=== PATIENT | male | born 1960 | race Asian ===

== ENCOUNTER 2016-11-14 22:22 | Inpatient (IN) | payer OTHER ==
[~2016-11-14] VITALS: Ht 177.8 cm; Wt 75.3 kg
--- NOTE | 2016-11-14 22:30 | NUR ---
Patient exited the restroom with his pants at his ankles. Patient was disoriented and attempting to enter other patient's rooms stating "I need to lay down." Patient was not directable, for his safety staff took patient by the arm and led him to his bed. Due to patient's gait and disorientation staff was unable to pull his pants up before patient layed in bed.
[2016-11-14] MEDS ORDERED: TDAP DIPH,PERTUSS,TET VAC/PF 0.5 ML DISP.SYRIN IM ONE (22:45)
[2016-11-14] MEDS ORDERED: LORAZEPAM 2 MG/1 ML VIAL IV ONE (22:45)
[2016-11-14] MEDS ORDERED: ONDANSETRON IV *ER 4 MG/2 ML VIAL IV ONE (22:45)
[2016-11-14] MEDS ORDERED: IV NORMAL SALINE 1000 ML BAG IV ONE (22:45)
[2016-11-14] MEDS ORDERED: PIPERACILLIN SODIUM/TAZOBACTAM 3.375 G in IV DEXTROSE 5% 50 ML IV ONE (22:45)
[2016-11-14] MEDS ORDERED: diphenhydrAMINE 50 MG/1 ML VIAL IV ONE (22:45)
[2016-11-14] MEDS ORDERED: ACETAMINOPHEN ES 500 MG TABLET PO ONE (22:45)
[2016-11-14] MEDS ORDERED: VANCOMYCIN IV 1,000 MG in IV DEXTROSE 5% 250 ML IV ONE (22:45)
[2016-11-14] MEDS ORDERED: LORAZEPAM 2 MG/1 ML VIAL ONE (22:55)
[2016-11-14] MEDS ORDERED: diphenhydrAMINE 50 MG/1 ML VIAL ONE (22:55)
[2016-11-14] MEDS ORDERED: diphenhydrAMINE 50 MG/1 ML VIAL IM ONE (23:15)
[2016-11-14] MEDS ORDERED: LORAZEPAM 2 MG/1 ML VIAL IM ONE (23:15)
[2016-11-14 23:31] LABS: EOSINOPHILS # (AUTO) 0.2 K/uL (0.0-0.7); WHITE BLOOD COUNT (AUTO) 7.2 K/UL (4.0-11.2)
[2016-11-14 23:33] LABS: BASOPHILS % (AUTO) 0.5 % (0.0-2.0); EOSINOPHILS % (AUTO) 2.3 % (0.0-7.0); HEMATOCRIT 42.4 % (40-50); HEMOGLOBIN 13.7 G/DL (14.0-18.0); LYMPHOCYTES # (AUTO) 0.7 K/UL (0.8-4.8); LYMPHOCYTES % (AUTO) 9.9 % (20.5-51.5); MEAN CORPUSCULAR HEMOGLOBIN 29.1 UUG (27.0-31.0); MEAN CORPUSCULAR HGB CONC 32 g/dL (32.0-37.0); MEAN CORPUSCULAR VOLUME 90.2 FL (82.0-92.0); MONOCYTES # (AUTO) 0.2 K/UL (0.1-1.30); MONOCYTES % (AUTO) 2.9 % (0.0-11.0); NEUTROPHILS # (AUTO) 6.1 K/UL (1.8-8.9); NEUTROPHILS % (AUTO) 84.4 % (38.5-71.5); PLATELET COUNT (AUTO) 187 K/UL (150-450)
[2016-11-14 23:35] LABS: CARBON DIOXIDE 25 mmol/L (21-32); CHLORIDE 99 mmol/L (98-107); CREATININE 0.7 mg/dL (0.6-1.3); GLUCOSE 112 mg/dL (74-106); POTASSIUM 3.7 mmol/L (3.5-5.1); UREA NITROGEN, BLOOD 19 mg/dL (7-18)
[2016-11-14 23:38] LABS: BAND % (MANUAL) 3 % (0-10); EOSINOPHILS % (MANUAL) 2 % (0-8); LYMPHOCYTES % (MANUAL) 15 % (20-40); MONOCYTES % (MANUAL) 5 % (2-10); NEUTROPHILS % (MANUAL) 75 % (42-75)
[2016-11-14 23:41] LABS: ALANINE AMINOTRANSFERASE 214 U/L (16-63); ALKALINE PHOSPHATASE 171 U/L (50-136); ASPARTATE AMINOTRANSFERASE 264 U/L (15-37); BILIRUBIN,DIRECT 0.2 mg/dL (0.0-0.2); BILIRUBIN,TOTAL 0.8 mg/dL (0.2-1.0); TOTAL PROTEIN, SERUM 7.5 g/dL (6.4-8.2)
[2016-11-15] MEDS ORDERED: ACETAMINOPHEN 650 MG SUPP.RECT RC ONE ×2 (00:15→00:26)
[2016-11-15] MEDS ORDERED: TDAP DIPH,PERTUSS,TET VAC/PF 0.5 ML DISP.SYRIN IM ONE (00:20)
[2016-11-15] MEDS ORDERED: ACETAMINOPHEN ES 500 MG TABLET ONE (00:20)
[2016-11-15] MEDS ORDERED: ONDANSETRON 4 MG/2 ML VIAL ONE (00:20)
[2016-11-15] MEDS ORDERED: PIPERACILLIN/TAZOBACTAM/D5W 50 ML IV ONE (00:20)
[2016-11-15] MEDS ORDERED: VANCOMYCIN IV 200 ML ONE (01:11)
--- NOTE | 2016-11-15 01:50 | NUR ---
Patient attempting to exit the bed, agitated and trying to push past staff. At this time staff observed that he had removed all IV and monitor lines before exiting the bed. RADHA notified.
[2016-11-15] MEDS ORDERED: LABETALOL HCL 100 MG/20 ML VIAL IV ONE (02:00)
[2016-11-15] MEDS ORDERED: LABETALOL 20 MG/4 ML VIAL IV ONE (02:11)
--- NOTE | 2016-11-15 02:50 | NUR ---
Patient attempting to exit the bed, pulled out IV, ERMD notified.
[2016-11-15] MEDS ORDERED: MAGNESIUM HYDROXIDE 30 ML LIQUID UDC PO PRN (03:00)
[2016-11-15] MEDS ORDERED: LORAZEPAM 2 MG/1 ML VIAL IV ONE (03:00)
[2016-11-15] MEDS ORDERED: ONDANSETRON 4 MG/2 ML VIAL IV PRN (03:00)
[2016-11-15] MEDS ORDERED: Z GUARD REMEDY PASTE 57 GM TUBE TOP PRN (03:00)
[2016-11-15] MEDS ORDERED: LORAZEPAM 2 MG/1 ML VIAL ONE (03:12)
--- NOTE | 2016-11-15 03:25 | NUR ---
RECEIVED PT FROM ER VIA [facility], ACCOMPANIED BY MOTHER. PT IS ASLEEP, IN NO ACUTE DISTRESS, NO SOB. DX: ALTERED MENTAL STATUS UNDER THE CARE OF DR. BUTT. ADMISSION PROCESS STARTED, BELONGING LIST DONE, CARE PLAN INITIATED. BED ALARM ON, 1:1 SITTER FOR SAFETY. WILL CONTINUE TO MONITOR.
[2016-11-15 03:45] VITALS: BP 151/108
--- NOTE | 2016-11-15 04:07 | NUR ---
Pt. admitted to TELE, under care of Dr. Bonilla Belongs List completed
--- NOTE | 2016-11-15 06:00 | NUR ---
PT SLEEPING, AROUSABLE, IN NO ACUTE DISTRESS. 1:1 SITTER FOR SAFETY. WILL CONTINUE TO MONITOR.
--- NOTE | 2016-11-15 07:30 | NUR ---
PATIENT RECEIVED IN ROOM RESTING WITH EYES CLOSED IN NO ACUTE DISTRESS. SR ON FACULTY RESEARCH PHYSICIAN. PATIENT WITH 1:1 SITTER AT BEDSIDE FOR SAFETY.
--- NOTE | 2016-11-15 08:29 | NUR ---
SBAR REPORT GIVEN TO RN TAKING OVER PATIENT'S CARE.
[2016-11-15] MEDS ORDERED: IV NS 1000 ML 1,000 ML IV PRN (09:45)
[2016-11-15] MEDS ORDERED: PIPERACILLIN/TAZOBACTAM/D5W 50 ML IV SCH (09:45)
[2016-11-15] MEDS ORDERED: CLONIDINE HCL 0.1 MG TABLET PO PRN (10:00)
[2016-11-15] MEDS ORDERED: AMLODIPINE 5 MG TABLET PO SCH ×2 (10:00→22:40)
[2016-11-15 10:20] LABS: BASOPHILS # (AUTO) 0.1 K/uL (0.0-8.0); BASOPHILS % (AUTO) 0.8 % (0.0-2.0); EOSINOPHILS % (AUTO) 0.3 % (0.0-7.0); HEMATOCRIT 45.8 % (40-50); HEMOGLOBIN 15.2 G/DL (14.0-18.0); LYMPHOCYTES # (AUTO) 1.5 K/UL (0.8-4.8); LYMPHOCYTES % (AUTO) 18.2 % (20.5-51.5); MEAN CORPUSCULAR HEMOGLOBIN 29.7 UUG (27.0-31.0); MEAN CORPUSCULAR HGB CONC 33 g/dL (32.0-37.0); MEAN CORPUSCULAR VOLUME 89.9 FL (82.0-92.0); MONOCYTES # (AUTO) 0.6 K/UL (0.1-1.30); NEUTROPHILS # (AUTO) 6.1 K/UL (1.8-8.9); NEUTROPHILS % (AUTO) 73.7 % (38.5-71.5); PLATELET COUNT (AUTO) 199 K/UL (150-450); WHITE BLOOD COUNT (AUTO) 8.3 K/UL (4.0-11.2)
[2016-11-15 10:26] LABS: *BILIRUBIN,URIN NEGATIVE (NEGATIVE); *BLOOD, URINE Trace-intact (NEGATIVE); *CLARITY,URINE CLEAR (CLEAR); *COLOR,URINE YELLOW (YELLOW); *KETONES,URINE NEGATIVE (NEGATIVE); *PROTEIN,URINE NEGATIVE (NEGATIVE); LEUKOCYTE ESTERASE ,URINE NEGATIVE (NEGATIVE); NITRITE, URINE NEGATIVE (NEGATIVE); UGLUCOSE TRACE (NEGATIVE)
[2016-11-15 10:36] LABS: BACTERIA,URINE NONE SEEN /HPF (NONE SEEN); RBC,URINE 0-3 /HPF (0-3); SQUAMOUS EPITHELIAL CELL,UR FEW /HPF (NONE SEEN); WBC,URINE NONE SEEN /HPF (0-3)
[2016-11-15 10:48] LABS: BILIRUBIN,TOTAL 0.5 mg/dL (0.2-1.0); CREATININE 0.8 mg/dL (0.6-1.3); MAGNESIUM 1.9 mg/dL (1.8-2.4); PHOSPHOROUS 2.8 mg/dL (2.5-4.9); POTASSIUM 3.6 mmol/L (3.5-5.1); TOTAL PROTEIN, SERUM 7.8 g/dL (6.4-8.2)
--- NOTE | 2016-11-15 11:00 | NUR ---
PT STARTED ON ZOSYN AND VANCOMYCIN, MONITORED FOR ALLERGIC REACTION. CONTINUE 1:1 SITTER FOR SAFETY.
[2016-11-15 11:28] LABS: THYROID STIMULATING HORMONE 0.161 mIU/mL (0.358-3.740)
[2016-11-15] MEDS: LORAZEPAM 2 MG/1 ML VIAL IV PRN ×3 (11:36→21:42)
[2016-11-15] MEDS: VANCOMYCIN IV 1,250 MG in IV DEXTROSE 5% 500 ML IV SCH ×2 (11:55→19:57)
--- NOTE | 2016-11-15 12:00 | NUR ---
SEEN BY DR. BARNARD FOR CONSULT FOR PAIN MGMT WITH ORDERS. SEE NOTES.
[2016-11-15] MEDS ORDERED: METHADONE HCL 10 MG TABLET PO SCH (13:30)
[2016-11-15] MEDS ORDERED: CLONIDINE TTS 2 PATCH TD SCH (13:30)
--- NOTE | 2016-11-15 14:00 | NUR ---
SEEN BY DR. HOGAN. CHANGED PT STATUS TO MED SURG.
[2016-11-15] MEDS: hydrALAZINE HCL 50 MG TABLET PO PRN ×2 (15:40→19:57)
[2016-11-15 15:48] VITALS: BP 178/68
--- NOTE | 2016-11-15 15:57 | NUR ---
Clinical Pharmacy Note: Vancomycin Pharmacy to Dose Subjective: To start vancomycin in this 56 y/o gentleman for indication of "empiric therapy" (temp 102.7) Objective: height 177 cm weight 75kg BUN 19 Scr 0.7 Wbc 7.2 Temp 102.7 1gm vanco given in ER 11/15 @ 0100 Assessment/Plan As renal function ok, will start regimen of 1250mg q9hr for expected vanco trough of 15.72. First dose given today at 1030. Will order trough before 4th scheduled dose (ordered and due tomorrow 11/16 @ 1300). will check trough and adjust as appropriately. Will continue to follow.
--- NOTE | 2016-11-15 16:34 | NUR ---
PT IN AND OUT OF EPISODES OF SCREAMING AND RESTLESSNESS DESPITE ATIVAN PRN GIVEN. CONTINUE 1:1 SITTER FOR SAFETY, NEW MEDICATIONS ORDERED AND WILL MONITOR B/P.
[2016-11-15 17:05] LABS: *AMPHETAMINE, URINE NEGATIVE (NEGATIVE); *BARBITURATE, URINE NEGATIVE (NEGATIVE); *CANNABINOID, URINE NEGATIVE (NEGATIVE); *COCCAINE, URINE NEGATIVE (NEGATIVE); *OPIATE, URINE POSITIVE (NEGATIVE); *PHENCYCLIDINE SCREEN,URINE NEGATIVE (NEGATIVE)
[2016-11-15] MEDS: METHADONE HCL 10 MG TABLET PO SCH (17:26)
[2016-11-15] MEDS: PIPERACILLIN/TAZOBACTAM/D5W 50 ML IV SCH ×2 (18:22→23:26)
--- NOTE | 2016-11-15 18:57 | NUR ---
MIDLINE INSERTION DONE ON LEFT UPPER ARM.
--- NOTE | 2016-11-15 19:30 | NUR ---
RESTING IN BED ASLEEP, BUT AROUSABLE. CALM AT THIS TIME. NO ACUTE DISTRESS NOTED. SAFETY INITIATED WITH 1:1 SITTER AT BEDSIDE. WILL CONTINUE TO MONITOR
[2016-11-15 20:00] VITALS: BP 176/119
[2016-11-15 22:44] VITALS: BP 192/121
--- NOTE | 2016-11-15 22:44 | NUR ---
BP STILL ELEVATED AT 192/121 AND HR AT 65. PATIENT CALM AND COMFORTABLE. DR. PRADO MADE AWARE WITH ORDERS. WILL CONTINUE TO MONITOR
[2016-11-15] MEDS ORDERED: AMLODIPINE 5 MG TABLET ONE (22:48)
[2016-11-15] MEDS: ACETAMINOPHEN 325 MG TABLET PO PRN (23:44)
--- NOTE | 2016-11-15 23:45 | NUR ---
STARTED TO BE SCREAMING AT THE TOP OF HIS LUNGS "I WANT MY OPIATES, I WANT TO GO HOME." "I AM NOT FEELING GOOD, I NEED MY OPIATES" SITTER AT BEDSIDE. WANTED TO GET OUT OF BED. PROVIDED SAFETY. STATED TO BE NAUSEOUS. WILL ADMINISTER ZOFRAN ORDERED
[2016-11-16] MEDS: LORAZEPAM 2 MG/1 ML VIAL IV PRN ×2 (01:43→06:34)
[2016-11-16] MEDS: VANCOMYCIN IV 1,250 MG in IV DEXTROSE 5% 500 ML IV SCH (04:03)
[2016-11-16] MEDS: hydrALAZINE HCL 50 MG TABLET PO PRN (04:48)
[2016-11-16 04:49] VITALS: BP 178/134
--- NOTE | 2016-11-16 05:59 | NUR ---
AT 0449 BP WAS 178/134. HYDRALAZINE GIVEN ORDERED. BP RECHECKED, STILL ELEVATED. 182/132. DR BUTT MADE AWARE WITH ORDERS
[2016-11-16] MEDS: LABETALOL HCL 100 MG/20 ML VIAL IV PRN ×3 (06:19→21:18)
[2016-11-16] MEDS ORDERED: LABETALOL HCL 100 MG/20 ML VIAL ONE (06:25)
[2016-11-16] MEDS: PIPERACILLIN/TAZOBACTAM/D5W 50 ML IV SCH ×3 (06:34→18:09)
[2016-11-16 08:00] VITALS: BP 183/121
--- NOTE | 2016-11-16 08:00 | NUR ---
PATIENT WITH ON AND OFF RESTLESSNESS AND AGITATION WITH 1:1 SITTER AT BEDSIDE FOR SAFETY. NO SIGNS OF DISTRESS. CONTINUE WITH LALITA MONITORING
[2016-11-16] MEDS: METHADONE HCL 10 MG TABLET PO SCH ×2 (08:09→17:37)
[2016-11-16] MEDS: AMLODIPINE 5 MG TABLET PO SCH ×2 (08:09→21:15)
[2016-11-16 08:26] LABS: BASOPHILS # (AUTO) 0.1 K/uL (0.0-8.0); BASOPHILS % (AUTO) 0.5 % (0.0-2.0); EOSINOPHILS % (AUTO) 0.4 % (0.0-7.0); HEMATOCRIT 47.9 % (40-50); HEMOGLOBIN 16.2 G/DL (14.0-18.0); LYMPHOCYTES # (AUTO) 2.2 K/UL (0.8-4.8); LYMPHOCYTES % (AUTO) 18.8 % (20.5-51.5); MEAN CORPUSCULAR HEMOGLOBIN 30.3 UUG (27.0-31.0); MEAN CORPUSCULAR HGB CONC 34 g/dL (32.0-37.0); MEAN CORPUSCULAR VOLUME 89.8 FL (82.0-92.0); MONOCYTES % (AUTO) 8.8 % (0.0-11.0); NEUTROPHILS # (AUTO) 8.3 K/UL (1.8-8.9); NEUTROPHILS % (AUTO) 71.5 % (38.5-71.5); PLATELET COUNT (AUTO) 220 K/UL (150-450); RED BLOOD CELL COUNT(AUTO) 5.33 MIL/UL (4.7-6.1); WHITE BLOOD COUNT (AUTO) 11.6 K/UL (4.0-11.2)
[2016-11-16 08:59] LABS: CREATININE 0.8 mg/dL (0.6-1.3); PHOSPHOROUS 2.9 mg/dL (2.5-4.9); POTASSIUM 3.2 mmol/L (3.5-5.1)
[2016-11-16 09:47] LABS: BAND % (MANUAL) 11 % (0-10); LYMPHOCYTES % (MANUAL) 25 % (20-40); MONOCYTES % (MANUAL) 11 % (2-10); NEUTROPHILS % (MANUAL) 53 % (42-75)
[2016-11-16] MEDS ORDERED: ENALAPRILAT DIHYDRATE INJ 1.25 MG in IV NORMAL SALINE 50 ML IV PRN (10:15)
[2016-11-16 10:26] LABS: MAGNESIUM 2.2 mg/dL (1.8-2.4)
[2016-11-16] MEDS: POTASSIUM CHLORIDE 50 ML IV SCH ×2 (11:01→12:04)
--- NOTE | 2016-11-16 11:30 | NUR ---
SEEN BY RN PBX TEACHER SEE NOTES
[2016-11-16 12:00] VITALS: BP 173/114
[2016-11-16 12:10] LABS: THYROID STIMULATING HORMONE 0.295 mIU/mL (0.358-3.740)
[2016-11-16 14:11] LABS: HEPATITIS A AB, IgM Negative (Negative); HEPATITIS A AB, TOTAL Negative (Negative); HEPATITIS B SURFACE AB Non Reactive (.); HEPATITIS B SURFACE AG Negative (Negative)
--- NOTE | 2016-11-16 14:15 | NUR ---
LABETALOL IVP GIVEN ORDERED FOR BP 174/121, SR ON MONITOR. CLOSELY MONITORED
[2016-11-16] MEDS: VANCOMYCIN IV 1,500 MG in IV DEXTROSE 5% 500 ML IV SCH ×2 (15:14→22:05)
[2016-11-16] MEDS: LORAZEPAM 1 MG TABLET PO PRN (15:14)
--- NOTE | 2016-11-16 15:31 | NUR ---
Clinical Pharmacy Note: Vancomycin Pharmacy to Dose Subjective: To continue Vancomycin in this 56 y/o gentleman for RUE cellulitis/sepsis Objective: height 177 cm weight 75kg BUN 9 Scr 0.8 Wbc 11.6 Temp 98.6 Vancomycin trough 9.6 today at 1300 Assessment/Plan Since trough is subtherapeutic, will change the dose to 1500mg IV every 8hrs(first dose given today at 1400) and draw trough around 4 th dose (ordered tomorrow at 1330) for expected trough around 14.9. Will monitor renal function closely to adjust the dose if needed. Will continue to follow.
[2016-11-16 16:00] VITALS: BP 162/119
[2016-11-16 16:26] VITALS: BP 119/58
[2016-11-16 20:00] VITALS: BP 165/99
[2016-11-16] MEDS: LACTOBACILLUS RHAMNOSUS GG 1 EACH CAPSULE PO SCH (21:13)
--- NOTE | 2016-11-16 21:30 | NUR ---
Received patient awake no SOB denies chest pain. Calmer at this time w/ 1:1 sitter in room. Able to follow command & cooperative w/ meds. BP elevated 168/99. Left upper arm midline intact & patent. PRN BP med Labetalol 2mg IVP adm & monitored. Patient is sinus rhythm on the monitor.
[2016-11-17] VITALS: BP 160/93
[2016-11-17] MEDS: PIPERACILLIN/TAZOBACTAM/D5W 50 ML IV SCH ×4 (00:07→17:40)
[2016-11-17] MEDS: ACETAMINOPHEN 325 MG TABLET PO PRN (02:43)
[2016-11-17] MEDS: LORAZEPAM 1 MG TABLET PO PRN ×3 (02:43→13:36)
--- NOTE | 2016-11-17 02:50 | NUR ---
Awake & agitated, disoriented to place begging for heroin to knock him out. Tele shows NSR w/ HR 90 bpm. Re-orientation initiated, Tylenol 650mg & Ativan 1mg po given. Safety observed, 1:1 sitter in room.
--- NOTE | 2016-11-17 04:00 | NUR ---
Patient is quiet & sleeping. 1:1 sitter in room for safety. Sinus rhythm on the monitor.
[2016-11-17 05:00] VITALS: BP 160/70
[2016-11-17 05:09] LABS: HEPATITIS Be ANTIGEN Negative (Negative)
[2016-11-17] MEDS: VANCOMYCIN IV 1,500 MG in IV DEXTROSE 5% 500 ML IV SCH (05:19)
[2016-11-17] MEDS: METHADONE HCL 10 MG TABLET PO SCH ×2 (06:19→16:42)
--- NOTE | 2016-11-17 06:25 | NUR ---
Awake again. Agitated & screaming begging for his methadone. Patient is more alert. Early dose of Methadone 20 mg po. provided. Will continue to monitor.
--- NOTE | 2016-11-17 07:37 | NUR ---
REMAINS WITH ON AND OFF RESTLESSNESS AND SCREAMING "GIVE ME MY METHADONE" REALITY ORIENTATION GIVEN AND CONTINUE WITH 1:1 SITTER FOR SAFETY
[2016-11-17] MEDS: LACTOBACILLUS RHAMNOSUS GG 1 EACH CAPSULE PO SCH ×2 (08:33→20:10)
[2016-11-17] MEDS: AMLODIPINE 5 MG TABLET PO SCH ×2 (08:35→20:10)
[2016-11-17] MEDS: CARVEDILOL 6.25 MG TABLET PO SCH ×2 (08:35→17:42)
[2016-11-17] MEDS ORDERED: IV NORMAL SALINE 250 ML IV ONE (09:29)
[2016-11-17] MEDS ORDERED: IOHEXOL 300MG/ML 100 ML INFUS..BTL ONE (09:29)
[2016-11-17 10:28] LABS: BASOPHILS % (AUTO) 0.4 % (0.0-2.0); EOSINOPHILS # (AUTO) 0.2 K/uL (0.0-0.7); EOSINOPHILS % (AUTO) 1.7 % (0.0-7.0); HEMATOCRIT 44.3 % (40-50); HEMOGLOBIN 14.5 G/DL (14.0-18.0); LYMPHOCYTES % (AUTO) 31.6 % (20.5-51.5); MEAN CORPUSCULAR HEMOGLOBIN 29.5 UUG (27.0-31.0); MEAN CORPUSCULAR HGB CONC 33 g/dL (32.0-37.0); MEAN CORPUSCULAR VOLUME 89.8 FL (82.0-92.0); MONOCYTES # (AUTO) 1.2 K/UL (0.1-1.30); MONOCYTES % (AUTO) 12.7 % (0.0-11.0); NEUTROPHILS # (AUTO) 5.1 K/UL (1.8-8.9); NEUTROPHILS % (AUTO) 53.6 % (38.5-71.5); PLATELET COUNT (AUTO) 216 K/UL (150-450); RED BLOOD CELL COUNT(AUTO) 4.93 MIL/UL (4.7-6.1); WHITE BLOOD COUNT (AUTO) 9.5 K/UL (4.0-11.2)
[2016-11-17 10:39] LABS: BILIRUBIN,TOTAL 0.4 mg/dL (0.2-1.0); CREATININE 0.8 mg/dL (0.6-1.3); MAGNESIUM 2.1 mg/dL (1.8-2.4); PHOSPHOROUS 4.2 mg/dL (2.5-4.9); POTASSIUM 3.4 mmol/L (3.5-5.1); TOTAL PROTEIN, SERUM 6.7 g/dL (6.4-8.2)
[2016-11-17 12:02] VITALS: BP 107/74
[2016-11-17] MEDS ORDERED: POTASSIUM CHLORIDE 20 MEQ TAB.PRT.SR PO ONE (13:15)
--- NOTE | 2016-11-17 13:30 | NUR ---
VERY RESTLESS AND AGITATED WANTS TO GO HOME, TRIED TO REACH FAMILY BUT NO ANSWER. PRN ATIVEN GIVEN AND OBSERVED. SITTER AT BEDSIDE
[2016-11-17] MEDS ORDERED: HALOPERIDOL LACTATE 5 MG/1 ML VIAL IM ONE (14:00)
--- NOTE | 2016-11-17 14:00 | NUR ---
STILL VERY AGITATED CROSSING FLAGMAN ON FLORR MADE AWARE OF PT AGITATION UNCONTROLLABLE, GAVE PRDERS. HALDOL GIVEN
[2016-11-17] MEDS ORDERED: diphenhydrAMINE 50 MG/1 ML VIAL IM ONE (14:15)
--- NOTE | 2016-11-17 14:20 | NUR ---
BENADRYL ALSO GIVEN WITH GOOD EFFECT ON PATIENT.
--- NOTE | 2016-11-17 14:39 | NUR ---
Clinical Pharmacy Note: Vancomycin Pharmacy to Dose Subjective: To continue Vancomycin in this 56 y/o gentleman for RUE cellulitis/sepsis Objective: height 177 cm weight 75kg BUN 12 Scr 0.8 Wbc 9.5 Temp 97.9 Vancomycin trough 20.1 today @1330 Assessment/Plan Trough slightly supratherapeutic, changed regimen to 1250mg q8hrs with new expected trough of 16.1. Ordered trough before 4th scheduled dose, due tomorrow at 1430. Will check trough tomorrow and readjust as needed. Will monitor renal function closely to adjust the dose if needed. Will continue to follow.
[2016-11-17] MEDS: VANCOMYCIN IV 1,250 MG in IV DEXTROSE 5% 500 ML IV SCH ×2 (15:10→22:07)
[2016-11-17 15:41] VITALS: BP 112/74
--- NOTE | 2016-11-17 15:55 | NUR ---
INTERMITTENT SLEEP, NO SIGNS OF DISTRESS. CLOSELY WATCH FOR RESTLESSNESS. STILL ON 1:1 SITTER
[2016-11-17 20:06] VITALS: BP 108/74
[2016-11-17] MEDS ORDERED: hydrALAZINE HCL 50 MG TABLET PO PRN (21:00)
[2016-11-18] MEDS: PIPERACILLIN/TAZOBACTAM/D5W 50 ML IV SCH (00:49)
[2016-11-18 04:03] VITALS: BP 121/68
[2016-11-18] MEDS: LORAZEPAM 1 MG TABLET PO PRN (04:06)
[2016-11-18] MEDS: ACETAMINOPHEN 325 MG TABLET PO PRN (04:06)
--- NOTE | 2016-11-18 05:16 | NUR ---
PT WAS LETHARGIC AT START OF SHIFT BUT WAS EASILY AWOKEN, BUT AROUND 0000 PT WAS AWAKE AND LEFT. PT WAS CALM AND COOPERATIVE. IN THE MORNING PT STARTED TO BECOME AGITATED AND RESTLESS, TRYING TO PULL LINES OUT AND YELLING, TYING TO GO HOME.PT WAS GIVEN ATIVAN PO WHICH WAS NOT REALLY EFFECTIVE, PT NEEDED TO BE REDIRECTED MULTIPLE TIMES. PT DENIES HAVING ANY PAIN OR DIFFICULTY BREATHING. ALL NEEDS MET, SAFETY MEASURES ARE IN PLACE, CALL LIGHT WITHIN REACH, BED ALARM IS ON.
[2016-11-18] MEDS: METHADONE HCL 10 MG TABLET PO SCH (06:20)
[2016-11-18 06:56] LABS: BASOPHILS # (AUTO) 0.1 K/uL (0.0-8.0); BASOPHILS % (AUTO) 0.6 % (0.0-2.0); EOSINOPHILS # (AUTO) 0.4 K/uL (0.0-0.7); HEMATOCRIT 42.4 % (40-50); LYMPHOCYTES # (AUTO) 3.4 K/UL (0.8-4.8); LYMPHOCYTES % (AUTO) 30.5 % (20.5-51.5); MEAN CORPUSCULAR HEMOGLOBIN 30.1 UUG (27.0-31.0); MEAN CORPUSCULAR HGB CONC 33 g/dL (32.0-37.0); MEAN CORPUSCULAR VOLUME 91.2 FL (82.0-92.0); MONOCYTES # (AUTO) 1.2 K/UL (0.1-1.30); MONOCYTES % (AUTO) 10.4 % (0.0-11.0); NEUTROPHILS % (AUTO) 54.5 % (38.5-71.5); PLATELET COUNT (AUTO) 243 K/UL (150-450); RED BLOOD CELL COUNT(AUTO) 4.65 MIL/UL (4.7-6.1); WHITE BLOOD COUNT (AUTO) 11.1 K/UL (4.0-11.2)
--- NOTE | 2016-11-18 07:02 | NUR ---
PT BECAME VERY AGITATED IN THE MORNING, CALLED EMILIANO KINCAID, PT STARTED TO YELL THAT HE WANTED TO GO HOME, TRIED TO REASON WITH THE PT BUT PT KEPT YELLING LOUDER, CALLED HIS MOTHER TO TRY TO CALM HIM DOWN, DID NOT WORK. PT PULLED HIS MIDLINE OUT STARTED TO GET UP OUT OF BED, PT IS NOT STABLE ON HIS FEET, DR BUTT WAS CALLED AND NOTIFIED, OK TO GIVE METHADONE EARLY, PT WAS GIVEN MEDICATION AND PT DID SIGN AMA FORM BUT BEFORE HE LEFT HE FELL ASLEEP, 1:1 SITTER AT BEDSIDE, WILL CONTINUE TO MONITOR.
[2016-11-18 07:25] LABS: BILIRUBIN,TOTAL 0.4 mg/dL (0.2-1.0); CREATININE 1.2 mg/dL (0.6-1.3); MAGNESIUM 2.2 mg/dL (1.8-2.4); POTASSIUM 3.5 mmol/L (3.5-5.1); TOTAL PROTEIN, SERUM 6.7 g/dL (6.4-8.2)
--- NOTE | 2016-11-18 07:30 | NUR ---
PATIENT IS ASLEEP IN HIS BED AT THIS TIME REPORT WAS THAT HE WAS AGITATED EARLIER AND CODE KINCAID/CHEMICAL MEDICATION WAS ADMINISTERED AND THAT PATIENT ALREADY SIGNED PAPERS TO BE DISCHARGED AGAINST MEDICAL ADVICE WILL CONTINUE TO OBSERVE
--- NOTE | 2016-11-18 08:10 | NUR ---
PATIENT IS AWAKE NOW AND VERBALLY ABUSIVE AND AGGRESSIVE WANTS TO LEAVE EMILIANO KINCAID CALLED AND THE SECURITY GUARDS ARE HERE THE CHAIN MAKER CALLED PATIENT WHO STATED THAT SHE WILL CALL THE [employer] ELECTRICAL CHECKOUT MECHANIC FOR HIM PATIENT HAS NO IV ACCES AND NAME TAG REMOVED AND PATIENT WAS ESCORTED OUT BY THE SECURITY GUARDS Addendum: 11/18/16 at 0845 by LAWRENCE SHAW RN PATIENT WAS SO AGGRESSIVE THAT WHEN I ASKED HIM IF HE COULD WAIT FOR DISCHARGE PAPERS/INSTRUCTIONS HE STATED THAT I NEEDED TO GET OUT OF HIS FACE SO I DID NOT HAVE THE TIME TO PREPARE A DISCHARGE INSTRUCTIONS BEFORE HE STORMED OFF WITH THE PROJECT CONTROL OFFICER BEHIND HIM
--- NOTE | 2016-11-18 08:11 | NUR ---
The patient signed AMA papers. Spoke to his mother, Ghada Aldridge [ ], and she stated that she will be calling an UBER and bring him clothes. She also spoke to the patient who was about to leave the hospital and he agreed to wait for her to pick him up. The patient is currently homeless and will be staying at her home. His RN [Maya], battery recharger [Lisa] and RN supervisor transferring and boxing [Macy] is aware of the situation.
== END 2016-11-18 08:40 | disposition left against medical advice (07) | DRG 720 ==
LOC: ER 22:32 → TELE 11-15 02:27 → MED 11-15 14:54 → TELE-TD 11-16 06:04 → TELE 11-17 16:40 → MED 11-17 21:12
PROVIDERS: ADMIT Family Medicine; ATTEND Family Medicine
PROC: 05HA33Z Insertion of Infusion Device into Left Brachial Vein, Percutaneous Approach (ICD-10-PCS; principal; 2016-11-15)
DX: A41.9 Sepsis, unspecified organism (principal); G92 Toxic encephalopathy; E44.0 Moderate protein-calorie malnutrition; E88.09 Other disorders of plasma-protein metabolism, not elsewhere classified; I36.1 Nonrheumatic tricuspid (valve) insufficiency; E87.1 Hypo-osmolality and hyponatremia; F11.23 Opioid dependence with withdrawal; E86.0 Dehydration; L03.113 Cellulitis of right upper limb; I10 Essential (primary) hypertension; E78.5 Hyperlipidemia, unspecified; E87.6 Hypokalemia; R74.0 Nonspecific elevation of levels of transaminase and lactic acid dehydrogenase [LDH]; R73.9 Hyperglycemia, unspecified; I34.0 Nonrheumatic mitral (valve) insufficiency; Q25.43 Congenital aneurysm of aorta; B19.20 Unspecified viral hepatitis C without hepatic coma; Z68.23 Body mass index [BMI] 23.0-23.9, adult; R93.1 Abnormal findings on diagnostic imaging of heart and coronary circulation; I51.7 Cardiomegaly
CPT/HCPCS: 36415; 70030-TC; 71010; 76705; 80307; 83605; 83690; 83735; 84100; 84443; 84481; 85025; 85730; 86704; 86705; 86706; 86708; 86709; 86803; 87040; 87086; 87340; 87350; 87806; 90715; 93005; 93307; A4663; C1758; J1200; J1630; J2060; J2405; J2543; J3370; J3480; J3490; J7030; J7050; J7060; Q9967